=== PATIENT | male | born 1995 | race Caucasian/White ===

== ENCOUNTER 2020-05-15 18:37 | Emergency (ER) | payer BC ==
[2020-05-15 19:12] LABS: Urine Blood NEGATIVE (NEG); Urine Glucose NEGATIVE (NEG); Urine Protein NEGATIVE (NEG); Urine Specific Gravity 1.015 (1.005-1.030)
[2020-05-15 19:18] LABS: Barbiturates NEGATIVE (NEGATIVE); Benzodiazepines NEGATIVE (NEGATIVE); Cocaine NEGATIVE (NEGATIVE); METHAMPHETAM NEGATIVE (NEGATIVE); Methadone NEGATIVE (NEGATIVE); Opiates NEGATIVE (NEGATIVE); Phencyclidine NEGATIVE (NEGATIVE); THC Cannibis NEGATIVE (NEGATIVE)
[2020-05-15 19:21] LABS: Absolute Lymphocytes (CBC) 2.1 K/uL (0.7-4.9); Basophils % 0.4 % (0-1.3); Hematocrit 46.3 % (39.6-49.0); Lymphocytes % 25.4 % (15.3-44.8); MPV 7.5 fL (7.6-11.3); RBC Red Blood Cell Count 5.41 M/uL (4.33-5.43)
[2020-05-15 19:22] LABS: Protime INR 1.05
[2020-05-15 19:26] LABS: ALT/SGPT 37 U/L (12-78); AST/SGOT 26 U/L (15-37); Albumin 4.2 g/dL (3.4-5.0); Alkaline Phosphatase 78 U/L (45-117); BUN Blood Urea Nitrogen 12 mg/dL (7-18); Bicarbonate 25 mmol/L (21-32); Bilirubin Direct 0.2 mg/dL (0-0.2); Bilirubin Total 0.6 mg/dL (0.2-1.0); Glucose Level 103 mg/dL (74-106); Magnesium 2.2 mg/dL (1.8-2.4); Potassium 3.7 mmol/L (3.5-5.1); Protein, Total 7.6 g/dL (6.4-8.2); Sodium Level 140 mmol/L (136-145); Troponin (Emerg Dept Use Only) < 0.02 ng/mL (0.0-0.045)
[2020-05-15 19:27] LABS: NT PRO-BNP < 5 pg/mL (<125)
[2020-05-15] MEDS ORDERED: NA CHLORIDE 0.9% 1,000 ML ONE (19:27)
[2020-05-15] MEDS ORDERED: KETOROLAC 30 MG/ML INJ ONE (19:27)
--- NOTE | 2020-05-15 19:52 | RAD REPORT ---
EXAM DESCRIPTION: Ngoc Single View05/15/2020 7:36 pm CLINICAL HISTORY: Chest pain COMPARISON: none FINDINGS: The lungs appear clear of acute infiltrate. The heart is normal size IMPRESSION: No acute abnormalities displayed
--- NOTE | 2020-05-15 20:05 | EDPHYS ---
Physician Documentation [facility] Name: James Washington Age: 24 yrs Sex: Male : 1995 Arrival Date: 05/15/2020 Time: 18:38 Bed 5 Private MD: ED Physician Demetrio Cody HPI: 05/15 19:05 This 24 yrs old Male presents to ER via EMS with complaints of Chest Pain. cp 19:05 The patient or guardian reports chest pain that is located primarily in the anterior cp chest wall, left. The pain does not radiate. Associated signs and symptoms: Pertinent positives: dizziness, Pertinent negatives: abdominal pain, cough, headache, lower extremity pain, lower extremity swelling, palpitations, recent travel, shortness of breath, syncope, vomiting. Duration: The patient or guardian reports a single episode, that is still ongoing. Modifying factors: the symptoms are aggravated by nothing. Historical: - Allergies: 18:42 No Known Allergies; jr10 - Home Meds: 18:42 levothyroxine oral [Active]; jr10 - PMHx: 18:42 Thyroid problem; jr10 - Immunization history:: Adult Immunizations unknown. - Social history:: Smoking status: unknown. ROS: 19:06 Cardiovascular: Positive for chest pain, of the anterior aspect below left breast, cp Negative for edema, palpitations. 19:06 Eyes: Negative for injury, pain, redness, and discharge. cp 19:06 Constitutional: Negative for body aches, chills, fever, poor PO intake. 19:06 Respiratory: Negative for cough, shortness of breath, wheezing. 19:06 Abdomen/GI: Negative for abdominal pain, nausea, vomiting, and diarrhea. 19:06 Neuro: Negative for dizziness, headache, syncope, weakness. cp 19:06 All other systems are negative. cp Exam: 19:06 ECG was reviewed by the Attending Physician. cp 19:10 Constitutional: The patient appears in no acute distress, alert, awake, comfortable, cp non-diaphoretic, non-toxic, well developed, well nourished. 19:10 Head/Face: Normocephalic, atraumatic. cp 19:10 Eyes: Periorbital structures: appear normal, Conjunctiva: normal, no exudate, no injection, Lids and lashes: appear normal, bilaterally. 19:10 ENT: External ear(s): are unremarkable, Nose: is normal, Mouth: Lips: moist, Oral mucosa: moist, Posterior pharynx: Airway: no evidence of obstruction, patent. 19:10 Chest/axilla: Inspection: normal, Palpation: is normal, no crepitus, no tenderness. 19:10 Cardiovascular: Rate: normal, Rhythm: regular, Heart sounds: murmur, not appreciated, rub, not appreciated, gallop, not appreciated, Edema: is not appreciated, JVD: is not appreciated. 19:10 Respiratory: the patient does not display signs of respiratory distress, Respirations: normal, no use of accessory muscles, no retractions, labored breathing, is not present, Breath sounds: are clear throughout, no decreased breath sounds, no stridor, no wheezing. 19:10 Abdomen/GI: Inspection: abdomen appears normal, Palpation: abdomen is soft and non-tender, in all quadrants. 19:10 Back: pain, is absent, ROM is normal. cp 19:10 Neuro: Orientation: to person, place \T\ time. Mentation: is normal. Vital Signs: 19:03 BP 143 / 80; Pulse 79; Resp 20; Temp 98.8; Pulse Ox 98% on R/A; Weight 86.18 kg; Height jr10 6 ft. 1 in. (185.42 cm); 19:30 BP 136 / 78; Pulse 75; Resp 16; Pulse Ox 97% on R/A; jb4 19:03 Body Mass Index 25.07 (86.18 kg, 185.42 cm) jr10 MDM: 18:42 Patient medically screened. cp 19:00 Differential diagnosis: abnormal EKG, acute myocardial infarction, acute pericarditis, cp chest wall pain, pericarditis, pneumonia, pneumothorax, pulmonary embolus. 20:03 Data reviewed: vital signs, nurses notes, lab test result(s), EKG, radiologic studies, cp plain films, and as a result, I will discharge patient. 20:03 Test interpretation: by ED physician or midlevel provider: ECG. Counseling: I had a cp detailed discussion with the patient and/or guardian regarding: the historical points, exam findings, and any diagnostic results supporting the discharge/admit diagnosis, lab results, radiology results, to return to the emergency department if symptoms worsen or persist or if there are any questions or concerns that arise at home. Response to treatment: the patient's symptoms have mildly improved after treatment. Special discussion: Based on the patient's history, exam, and Dx evaluation, there is no indication for emergent intervention or inpatient Tx. It is understood by the patient/guardian that if the Sx's persist or worsen they need to return immediately for re-evaluation. 05/15 18:43 Order name: UDS; Complete Time: 20:01 05/15 20:01 Interpretation: Reviewed. 05/15 18:53 Order name: Basic Metabolic Panel; Complete Time: 20:01 cp 05/15 20:02 Interpretation: Reviewed. 05/15 18:53 Order name: CBC with Diff; Complete Time: 20:01 05/15 20:01 Interpretation: Normal except: MPV 7.5. 05/15 18:53 Order name: LFT's; Complete Time: 20:01 05/15 18:53 Order name: Magnesium; Complete Time: 20:01 05/15 18:53 Order name: NT PRO-BNP; Complete Time: 20:01 05/15 18:53 Order name: PT-INR; Complete Time: 20:01 05/15 18:53 Order name: Troponin (emerg Dept Use Only); Complete Time: 20:01 05/15 20:02 Interpretation: Reviewed. 05/15 18:53 Order name: COVID-19 05/15 19:05 Order name: Urine Dipstick--Ancillary (enter results) tt3 05/15 19:06 Order name: Urine Dipstick-Ancillary; Complete Time: 20:01 EDMS 05/15 19:15 Order name: DD 05/15 19:24 Order name: D-Dimer; Complete Time: 20:01 EDMS 05/15 20:02 Interpretation: D-DIMER < 215; Reviewed. 05/15 18:43 Order name: EKG; Complete Time: 18:43 cp 05/15 18:43 Order name: EKG - Nurse/Tech; Complete Time: 19:14 cp 05/15 18:43 Order name: Urine Dipstick-Ancillary (obtain specimen); Complete Time: 19:14 05/15 18:53 Order name: XRAY Chest (1 view); Complete Time: 20:01 cp 05/15 18:53 Order name: Cardiac monitoring; Complete Time: 19:14 05/15 18:53 Order name: IV Saline Lock; Complete Time: 19:14 05/15 18:53 Order name: Labs collected and sent; Complete Time: 19:14 05/15 18:53 Order name: O2 Per Protocol; Complete Time: 19:14 05/15 18:53 Order name: O2 Sat Monitoring; Complete Time: 19:14 05/15 18:53 Order name: Document PUI#; Complete Time: 19:14 05/15 18:53 Order name: Droplet/Contact Precautions; Complete Time: 19:14 05/15 18:53 Order name: Notify Health Dept [phone]/ ; Complete Time: 19:14 cp EC:06 Rate is 81 beats/min. Rhythm is regular. ND interval is normal. QRS interval is normal. cp QT interval is normal. T waves are Flattened in lead aVL. Interpreted by me. Reviewed by me. Administered Medications: 19:29 Drug: NS 0.9% 1000 ml Route: IV; Rate: 1 bolus; Site: right hand; jb4 20:15 Follow up: Response: No adverse reaction; IV Status: Order to discontinue infusion; IV jb4 Intake: 700ml 19:30 Drug: TORadol - Ketorolac 15 mg Route: IVP; Site: right hand; jb4 20:00 Follow up: Response: No adverse reaction; No change in condition jb4 Disposition: 05/16 07:28 Co-signature as Attending Physician, Demetrio Cody MD I agree with the assessment and kdr plan of care. Disposition: 05/15/20 20:04 Discharged to Home. Impression: Other chest pain. - Condition is Stable. - Discharge Instructions: Chest Wall Pain. - Prescriptions for Naprosyn 500 mg Oral Tablet - take 1 tablet by ORAL route 2 times per day take with food; 20 tablet. - Medication Reconciliation Form, Thank You Letter, Antibiotic Education, Prescription Opioid Use form. - Follow up: Private Physician; When: 1 - 2 days; Reason: Recheck today's complaints. - Problem is new. - Symptoms have improved. Signatures: Dispatcher [employer] EDMI Demetrio Cody MD MD [facility] José Miguel Garcia PA PA cp Dion Werner, RN RN jb4 Gail Abarca RN RN jr10 Corrections: (The following items were deleted from the chart) 05/15 19:25 19:16 D-Dimer ordered. EDMS EDMS 20:15 20:04 05/15/2020 20:04 Discharged to Home. Impression: Other chest pain. Condition is jb4 Stable. Prescriptions for Keflex 250 mg Oral Capsule - take 1 capsule by ORAL route every 8 hours for 10 days; 30 capsule. and Forms are Medication Reconciliation Form, Thank You Letter, Antibiotic Education, Prescription Opioid Use. Follow up: Private Physician; When: 1 - 2 days; Reason: Recheck today's complaints. Problem is new. Symptoms have improved. cp
--- NOTE | 2020-05-15 20:05 | ER ---
Nurse's Notes [facility] Name: James Washington Age: 24 yrs Sex: Male : 1995 Arrival Date: 05/15/2020 Time: 18:38 Bed 5 Private MD: Diagnosis: Other chest pain Presentation: 05/15 18:40 Chief complaint: Patient states: Pt presents via EMS from the [facility] with c/o left side jr10 cp and dizziness that started at unknown time today; pt was given 384mg ASA and 1 NTG without relief; denies cardiac hx. Coronavirus screen: Patient denies a cough. Patient denies shortness of breath or difficulty breathing. Patient denies measured and/or subjective temperature greater than 100.4F prior to today's visit. Patient denies travel on a cruise ship or to a country the [facility] currently lists as an affected area. Patient denies contact with known and/or suspected case of COVID-19. Ebola Screen: No symptoms or risks identified at this time. Risk Assessment: Do you want to hurt yourself or someone else? Patient reports no desire to harm self or others. Onset of symptoms was May 15, 2020. 18:40 Method Of Arrival: EMS jr10 18:40 Acuity: AUTUMN 3 jr10 Historical: - Allergies: 18:42 No Known Allergies; jr10 - Home Meds: 18:42 levothyroxine oral [Active]; jr10 - PMHx: 18:42 Thyroid problem; jr10 - Immunization history:: Adult Immunizations unknown. - Social history:: Smoking status: unknown. Screenin:46 Abuse screen: Denies threats or abuse. Denies injuries from another. Nutritional jr10 screening: No deficits noted. Tuberculosis screening: No symptoms or risk factors identified. Fall Risk IV access (20 points). Assessment: 18:43 General: Appears in no apparent distress. Behavior is calm, cooperative, appropriate jr10 for age. Pain: Complains of pain in anterior aspect of left upper chest and left breast Pain does not radiate. Pain currently is 7 out of 10 on a pain scale. Quality of pain is described as heavy, pressure, Pain began suddenly, Is continuous, Alleviated by nothing. Aggravated by increased activity. Neuro: No deficits noted. Cardiovascular: Reports chest pain, dizziness Denies nausea, shortness of breath, vomiting, Capillary refill < 3 seconds Pulses are all present. Edema is absent. Rhythm is regular. Respiratory: Reports pain with respiration Airway is patent Respiratory effort is even, unlabored, Respiratory pattern is regular, symmetrical, Breath sounds are clear bilaterally. GI: No deficits noted. : No deficits noted. EENT: No deficits noted. Derm: No deficits noted. Musculoskeletal: No deficits noted. 19:05 Reassessment: Patient appears in no apparent distress at this time. Patient and/or jb4 family updated on plan of care and expected duration. Pain level reassessed. Patient is alert, oriented x 3, equal unlabored respirations, skin warm/dry/pink. 20:03 Reassessment: Patient appears in no apparent distress at this time. Patient and/or jb4 family updated on plan of care and expected duration. Pain level reassessed. Patient is alert, oriented x 3, equal unlabored respirations, skin warm/dry/pink. PT reports pain is unchanged, refuses further medications. [facility] guards and patient verbalized understanding of D/c and follow up instructions. Vital Signs: 19:03 BP 143 / 80; Pulse 79; Resp 20; Temp 98.8; Pulse Ox 98% on R/A; Weight 86.18 kg; Height jr10 6 ft. 1 in. (185.42 cm); 19:30 BP 136 / 78; Pulse 75; Resp 16; Pulse Ox 97% on R/A; jb4 19:03 Body Mass Index 25.07 (86.18 kg, 185.42 cm) jr10 ED Course: 18:38 Patient arrived in ED. jr10 18:39 José Miguel Garcia PA is PHCP. cp 18:39 Demetrio Cody MD is Attending Physician. cp 18:41 Triage completed. jr10 18:42 Arm band placed on. jr10 18:45 Gail Abarca, SIMI is Primary Nurse. jr10 18:46 Patient has correct armband on for positive identification. Bed in low position. Call jr10 light in reach. Side rails up X2. 2 police officers at bedside. Pulse ox on. NIBP on. Patient placed on droplet and contact precautions with eye protection. 19:00 Patient maintains SpO2 saturation greater than 95% on room air. jb4 19:04 Maintain EMS IV. Dressing intact. Good blood return noted. Site clean \T\ dry. Gauge \T\ jr 10 site: 20G right hand . Flushed. 19:37 XRAY Chest (1 view) In Process Unspecified. EDMS 20:03 No provider procedures requiring assistance completed. IV discontinued, intact, jb4 bleeding controlled, No redness/swelling at site. Pressure dressing applied. 05/16 10:10 Health Dept notified/ PUI # [id number]/ Kasey in lab notified. eb Administered Medications: 05/15 19:29 Drug: NS 0.9% 1000 ml Route: IV; Rate: 1 bolus; Site: right hand; jb4 20:15 Follow up: Response: No adverse reaction; IV Status: Order to discontinue infusion; IV jb4 Intake: 700ml 19:30 Drug: TORadol - Ketorolac 15 mg Route: IVP; Site: right hand; jb4 20:00 Follow up: Response: No adverse reaction; No change in condition jb4 Intake: 20:15 IV: 700ml; Total: 700ml. jb4 Outcome: 20:04 Discharge ordered by MD. cp 20:15 Discharged to Law Enforcement jb4 20:15 Condition: stable 20:15 Discharge instructions given to patient, police, Instructed on discharge instructions, follow up and referral plans. medication usage, Demonstrated understanding of instructions, follow-up care, medications, Prescriptions given X 1. 20:15 Patient left the ED. jb4 Addendum: 05/19/2020 16:21 Addendum: COVID-19 Result: Negative result given to RN to notify pt. Other: attempt d m5 will be made to fax to nurse at [facility]. 16:32 Addendum: Other FAXED COVID RESULT TO [facility] NURSE. s s Signatures: Dispatcher [employer] EDMS Jes Li RN RN dm5 Taylor Santos RN RN José Miguel Mckinley PA PA cp Bryson, James RN RN jb4 Roberta Flowers Jessica, RN RN jr10
[2020-05-15 20:21] VITALS: TEMP 98.8
[2020-05-15 20:22] VITALS: BP 136/78; O2SAT 97
--- NOTE | 2020-05-16 15:25 | EKG ---
Test Date: 2020-05-15 Test Time: 18:52:26 [employer] Developer: SOPHIE MEASUREMENT RESULTS: Intervals: Rate: 81 ME: 154 QRSD: 92 QT: 374 QTc: 434 [place]: P: 70 ME: 154 QRS: 70 T: 66 INTERPRETIVE STATEMENTS: Normal sinus rhythm with sinus arrhythmia Normal ECG No previous ECG available for comparison Electronically Signed On 05-16-20 15:24:09 CDT by Dash Gay
== END 2020-05-15 20:15 | disposition home or self-care (01) ==
LOC: ER 18:37
DX: R07.89 Other chest pain (principal); E07.9 Disorder of thyroid, unspecified
CPT/HCPCS: 96361; 93005; 85025; 80048; 36415; 83735; 85610; 85379; 80076; 80307 ×8; 81003; 84484; 83880; 71045; 96374; 99284; U0001; J7030